=== PATIENT | female | born 1955 | race Asian ===

== ENCOUNTER 2020-04-02 07:15 | Inpatient (IN) | payer OTHER, MEDICAID ==
[~2020-04-02] VITALS: Ht 162.6 cm; Wt 73.9 kg
[2020-04-02] MEDS ORDERED: REMDESIVIR PER PHARMACY 0 ML IV SCH (07:30)
[2020-04-02] MEDS ORDERED: AZITHROMYCIN 500MG/ 250ML 250 ML IV ONE (07:30)
[2020-04-02] MEDS ORDERED: ZINC SULFATE 220mg CAP or TAB PO ONE (07:30)
[2020-04-02] MEDS ORDERED: methylPREDNISolone SOD SUCC 125 MG/2 ML VL IV ONE (07:30)
[2020-04-02] MEDS ORDERED: ASCORBIC ACID 500 MG TAB PO ONE (07:30)
[2020-04-02] MEDS ORDERED: CHOLECALCIFEROL (VITD3) 2,000 UNIT CAP/TAB PO ONE (07:30)
[2020-04-02 08:04] LABS: Basophils # (auto) 0 10 ^3/uL (0-0.2); Basophils % (auto) 0.3 % (0.0-2.0); Eosinophils # (auto) 0 10 ^3/uL (0-0.8); Hemoglobin 13.7 g/dL (12.2-16.2); Lymphocytes # (auto) 1.2 10 ^3/uL (0.4-5.4); Monocytes # (auto) 0.5 10 ^3/uL (0-1.3); Nucleated Red Blood Cells % 0.3 %
[2020-04-02 08:11] LABS: Lymphocytes % (auto) 17.7 % (10.0-50.0); Mean Corpuscular Hemoglobin 29.4 pg (28.0-32.0); Monocytes % (auto) 7.3 % (0.0-12.0); Neutrophils # (auto) 5.2 10 ^3/uL (1.6-8.6); Neutrophils % (auto) 74.7 % (37.0-80.0); Platelet Count (auto) 190 10^3/uL (140-450); Red Blood Cells 4.64 10^6/uL (4.0-5.20); Red Cell Distribution Width 17.3 % (11.8-14.3)
[2020-04-02 08:21] LABS: Albumin 2.7 g/dL (3.4-5.0); Calcium 8.2 mg/dL (8.5-10.1); Potassium 4.7 mmol/L (3.5-5.1)
[2020-04-02 08:24] LABS: Lactic Acid w/Reflex 11.2 mmol/L (0.4-2.0)
[2020-04-02 08:29] LABS: BUN/Creatinine Ratio 19.3; Bilirubin, Total 0.5 mg/dL (0.2-1.0); CRP High Sensitivity 2.03 mg/dL (< 0.3); Total Protein 8.9 g/dL (6.4-8.2)
[2020-04-02] MEDS ORDERED: FUROSEMIDE 40 MG/4 ML VIAL IV ONE (08:30)
[2020-04-02] MEDS ORDERED: methylPREDNISolone SOD SUCC 40 MG/ML VL IV ONE ×2 (10:00→10:45)
[2020-04-02] MEDS ORDERED: MORPHINE SULF INJ 2 MG/ML SYRINGE 1ML IV PRN ×2 (10:15)
[2020-04-02] MEDS ORDERED: SODIUM BICARBONATE 8.4 % INJ 50ML VIAL IV ONE (10:15)
[2020-04-02] MEDS ORDERED: ACETAMINOPHEN 500 MG TAB PO PRN (10:15)
[2020-04-02] MEDS ORDERED: ONDANSETRON HCL 4 MG/2 ML VIAL IV PRN (10:15)
[2020-04-02] MEDS ORDERED: HYDROcodone-ACET 5/325MG TAB PO PRN (10:15)
[2020-04-02] MEDS ORDERED: DEXTROSE (50%) 50ML SYRG IV PRN (10:15)
[2020-04-02] MEDS ORDERED: NITROGLYCERIN 0.4 MG SL TAB SL PRN (10:15)
[2020-04-02] MEDS ORDERED: diphenhdrAMINE HCL 50 MG/1 ML VL IV ONE (10:45)
[2020-04-02] MEDS ORDERED: ACETAMINOPHEN 650 mg PER 20.3 mL UD PO ONE (10:45)
[2020-04-02] MEDS ORDERED: TOCILIZUMAB 400 MG in SODIUM CHL 0.9% 80 ML IV ONE (11:00)
[2020-04-02] MEDS: InsuLIN REG 1unit/0.01ml Soln (100units/ml) SC SCH ×3 (12:10→21:47)
[2020-04-02] MEDS: ACCU-CHEK COMFORT CURVE STRIP VI SCH ×3 (12:12→21:19)
[2020-04-02] MEDS ORDERED: ACET-1304 PO (14:39)
[2020-04-02] MEDS ORDERED: OMEP-263 PO (15:10)
[2020-04-02] MEDS ORDERED: LEVO125T7 PO (15:10)
[2020-04-02] MEDS ORDERED: AZEL0.054 EACHEYE (15:10)
[2020-04-02] MEDS ORDERED: CARV12.544 PO (15:10)
[2020-04-02] MEDS ORDERED: PIOG1TAB51 PO (15:10)
[2020-04-02] MEDS ORDERED: ENTE1TAB12 PO (15:10)
[2020-04-02] MEDS ORDERED: ALOG25TA PO (15:10)
[2020-04-02] MEDS ORDERED: LOSA-39 PO (15:10)
[2020-04-02] MEDS ORDERED: ASPI-498 PO (15:10)
[2020-04-02] MEDS ORDERED: ISO60SRT PO (15:10)
[2020-04-02] MEDS ORDERED: SIMV-8 PO (15:10)
[2020-04-02] MEDS ORDERED: CLON0.2T PO (15:10)
[2020-04-02] MEDS ORDERED: CHOL500023 PO (15:10)
[2020-04-02] MEDS ORDERED: FURO40TA4 PO (15:10)
[2020-04-02] MEDS ORDERED: AMLO-496 PO (15:10)
[2020-04-02] MEDS ORDERED: FENO145T27 PO (15:10)
[2020-04-02] MEDS ORDERED: KET2TP TOP (15:12)
[2020-04-02 17:39] VITALS: BP 122/58
[2020-04-02 18:44] VITALS: BP 130/64
[2020-04-02 19:56] VITALS: BP 130/51
[2020-04-02] MEDS: BUDESONIDE (INHALATION) 180 MCG IH IN SCH (19:56)
[2020-04-02] MEDS ORDERED: ENOXAPARIN SOD 40 MG/0.4 ML SYRINGE SC SCH (22:00)
[2020-04-02 22:41] VITALS: BP 106/64
[2020-04-03 02:27] VITALS: BP 128/75
[2020-04-03 06:05] LABS: Basophils # (auto) 0 10 ^3/uL (0-0.2); Eosinophils # (auto) 0 10 ^3/uL (0-0.8); Hematocrit 36.6 % (36.0-46.0); Hemoglobin 12.5 g/dL (12.2-16.2); Lymphocytes # (auto) 0.7 10 ^3/uL (0.4-5.4); Lymphocytes % (auto) 12.3 % (10.0-50.0); Mean Corpuscular Hemoglobin 29.6 pg (28.0-32.0); Mean Corpuscular Hgb Conc. 34.1 g/dL (32.0-36.0); Mean Corpuscular Volume 86.6 fL (80.0-100.0); Monocytes # (auto) 0.4 10 ^3/uL (0-1.3); Monocytes % (auto) 7.5 % (0.0-12.0); Neutrophils # (auto) 4.8 10 ^3/uL (1.6-8.6); Neutrophils % (auto) 80.2 % (37.0-80.0); Nucleated Red Blood Cells % 0.3 %; Platelet Count (auto) 155 10^3/uL (140-450); Red Blood Cells 4.23 10^6/uL (4.0-5.20); Red Cell Distribution Width 15.8 % (11.8-14.3)
[2020-04-03 06:11] LABS: Urine Amorphous Crystal FEW /hpf (None Seen); Urine Bacteria MOD /hpf (None Seen); Urine Blood 1+ /uL (Negative); Urine Hyaline Cast MANY /lpf (0 - 2); Urine Mucus FEW (None Seen); Urine Specific Gravity 1.019 (1.001-1.035); Urine WBC 6 /hpf (0 - 5)
[2020-04-03] MEDS: InsuLIN REG 1unit/0.01ml Soln (100units/ml) SC SCH ×4 (06:21→21:32)
[2020-04-03] MEDS: ACCU-CHEK COMFORT CURVE STRIP VI SCH ×4 (06:22→21:33)
[2020-04-03 06:30] LABS: Potassium 3.9 mmol/L (3.5-5.1)
[2020-04-03 06:52] LABS: BUN/Creatinine Ratio 26.1; Calcium 7.8 mg/dL (8.5-10.1)
[2020-04-03] MEDS: cefTRIAXone 1GM/50ML D5W 50 ML IV SCH (08:30)
[2020-04-03] MEDS: ZINC SULFATE 220mg CAP or TAB PO SCH (08:31)
[2020-04-03] MEDS: DexAMETHasone SOD PHOS 10MG/1ML VIAL INJ IV SCH (08:31)
[2020-04-03] MEDS: ASCORBIC ACID 1,000 MG TAB PO SCH (08:31)
[2020-04-03] MEDS: FAMOTIDINE (10MG/ML) 2ML VL IV SCH (08:31)
[2020-04-03] MEDS: CHOLECALCIFEROL (VITD3) 2,000 UNIT CAP/TAB PO SCH (08:31)
[2020-04-03] MEDS: ENOXAPARIN SOD 40 MG/0.4 ML SYRINGE SC SCH (08:31)
[2020-04-03] MEDS: AZITHROMYCIN 500MG/ 250ML 250 ML IV SCH (08:32)
[2020-04-03 09:20] VITALS: BP 149/59
[2020-04-03] MEDS: ALBUTEROL SULF HFA 90MCG INH 200DOSE IN PRN ×2 (09:20→20:34)
[2020-04-03] MEDS: BUDESONIDE (INHALATION) 180 MCG IH IN SCH ×2 (09:20→19:28)
[2020-04-03] MEDS ORDERED: ACETAMINOPHEN 650 mg PER 20.3 mL UD PO ONE (10:00)
[2020-04-03] MEDS ORDERED: IVERMECTIN 3 MG TAB PO ONE (10:00)
[2020-04-03] MEDS ORDERED: diphenhdrAMINE HCL 50 MG/1 ML VL IV ONE (10:00)
[2020-04-03] MEDS ORDERED: TOCILIZUMAB 400 MG in SODIUM CHL 0.9% 80 ML IV ONE (11:00)
[2020-04-03 12:10] VITALS: BP 112/76
[2020-04-03] MEDS: ERGOCALCIFEROL 50,000 UNIT(1.25MG) CAP PO SCH (15:00)
[2020-04-03] MEDS ORDERED: POTASSIUM CHL 10 Meq TABLET PO ONE (15:00)
[2020-04-03] MEDS ORDERED: FUROSEMIDE 40 MG/4 ML VIAL IV ONE (15:00)
[2020-04-03 19:28] VITALS: BP 109/66
[2020-04-03 22:05] VITALS: BP 134/81
[2020-04-04 02:16] VITALS: BP 116/92
[2020-04-04 06:19] VITALS: BP 161/85
[2020-04-04] MEDS: InsuLIN REG 1unit/0.01ml Soln (100units/ml) SC SCH ×4 (07:00→22:25)
[2020-04-04] MEDS: ALBUTEROL SULF HFA 90MCG INH 200DOSE IN PRN ×2 (07:07→23:07)
[2020-04-04] MEDS: BUDESONIDE (INHALATION) 180 MCG IH IN SCH ×2 (07:07→22:00)
[2020-04-04] MEDS: ACCU-CHEK COMFORT CURVE STRIP VI SCH ×4 (07:15→22:25)
[2020-04-04 07:30] LABS: Basophils # (auto) 0 10 ^3/uL (0-0.2); Basophils % (auto) 0.1 % (0.0-2.0); Eosinophils # (auto) 0 10 ^3/uL (0-0.8); Eosinophils % (auto) 0.1 % (0.0-7.0); Hemoglobin 12.9 g/dL (12.2-16.2); Lymphocytes # (auto) 0.6 10 ^3/uL (0.4-5.4); Lymphocytes % (auto) 14.2 % (10.0-50.0); Mean Corpuscular Hemoglobin 29.2 pg (28.0-32.0); Mean Corpuscular Hgb Conc. 33.9 g/dL (32.0-36.0); Mean Corpuscular Volume 86.1 fL (80.0-100.0); Monocytes # (auto) 0.3 10 ^3/uL (0-1.3); Monocytes % (auto) 7.1 % (0.0-12.0); Neutrophils # (auto) 3.6 10 ^3/uL (1.6-8.6); Neutrophils % (auto) 78.5 % (37.0-80.0); Nucleated Red Blood Cells % 0.4 %; Platelet Count (auto) 162 10^3/uL (140-450); Red Blood Cells 4.41 10^6/uL (4.0-5.20); Red Cell Distribution Width 16.6 % (11.8-14.3); White Blood Cell 4.6 10^3/uL (4.4-10.8)
[2020-04-04 07:49] LABS: INR 1.01 (0.9-1.15)
[2020-04-04 07:50] LABS: Chloride 107 mmol/L (98-107); Potassium 4.1 mmol/L (3.5-5.1); Sodium 140 mmol/L (136-145)
[2020-04-04 08:19] LABS: Alanine Aminotransferase 69 U/L (13-56); Albumin 2.5 g/dL (3.4-5.0); Alkaline Phosphatase 50 U/L (45-117); Anion Gap 9 (5-15); Aspartate Aminotransferase 105 U/L (15-37); BUN/Creatinine Ratio 30.9; Bilirubin, Total 0.5 mg/dL (0.2-1.0); CRP High Sensitivity 1.48 mg/dL (< 0.3); Calcium 7.7 mg/dL (8.5-10.1); Carbon Dioxide 24 mmol/L (21-32); Cholesterol 196 mg/dL (< 200); GFR African American 18 mL/min; GFR Non-African American 15 mL/min; Glucose 129 mg/dL (74-106); HDL Cholesterol 38 mg/dL (40-59); Lactate Dehydrogenase 1067 U/L (84-246); Magnesium 3.5 mg/dL (1.6-2.6); Total Protein 7.5 g/dL (6.4-8.2); Triglycerides 710 mg/dL (< 150)
[2020-04-04 08:25] LABS: Blood Urea Nitrogen 104 mg/dL (7-18)
[2020-04-04] MEDS: cefTRIAXone 1GM/50ML D5W 50 ML IV SCH (09:45)
[2020-04-04] MEDS: DexAMETHasone SOD PHOS 10MG/1ML VIAL INJ IV SCH (10:24)
[2020-04-04] MEDS: FAMOTIDINE (10MG/ML) 2ML VL IV SCH (10:25)
[2020-04-04] MEDS: IVERMECTIN 3 MG TAB PO SCH (10:25)
[2020-04-04] MEDS: ZINC SULFATE 220mg CAP or TAB PO SCH (10:25)
[2020-04-04] MEDS: AZITHROMYCIN 500MG/ 250ML 250 ML IV SCH (10:25)
[2020-04-04] MEDS: ENOXAPARIN SOD 40 MG/0.4 ML SYRINGE SC SCH (10:26)
[2020-04-04] MEDS: CHOLECALCIFEROL (VITD3) 2,000 UNIT CAP/TAB PO SCH (10:26)
[2020-04-04] MEDS: ASCORBIC ACID 1,000 MG TAB PO SCH (10:26)
[2020-04-04] MEDS: FUROSEMIDE 40 MG/4 ML VIAL IV SCH (10:27)
[2020-04-04 10:28] VITALS: BP 126/56
[2020-04-04 15:00] VITALS: BP 145/82
[2020-04-04 18:40] VITALS: BP 148/94
[2020-04-05 00:10] VITALS: BP 160/97
[2020-04-05 02:20] VITALS: BP 150/91
[2020-04-05 06:05] LABS: Albumin 2.6 g/dL (3.4-5.0); Calcium 7.9 mg/dL (8.5-10.1); Potassium 4.3 mmol/L (3.5-5.1)
[2020-04-05 06:12] LABS: BUN/Creatinine Ratio 35.5; Bilirubin, Total 0.6 mg/dL (0.2-1.0); Total Protein 7.5 g/dL (6.4-8.2)
[2020-04-05 06:40] VITALS: BP 169/89
[2020-04-05] MEDS: ACCU-CHEK COMFORT CURVE STRIP VI SCH ×4 (07:00→21:42)
[2020-04-05] MEDS: InsuLIN REG 1unit/0.01ml Soln (100units/ml) SC SCH ×4 (07:00→21:36)
[2020-04-05] MEDS: FUROSEMIDE 40 MG/4 ML VIAL IV SCH (08:13)
[2020-04-05] MEDS: cefTRIAXone 1GM/50ML D5W 50 ML IV SCH (08:13)
[2020-04-05] MEDS: DexAMETHasone SOD PHOS 10MG/1ML VIAL INJ IV SCH (08:13)
[2020-04-05] MEDS: ZINC SULFATE 220mg CAP or TAB PO SCH (08:14)
[2020-04-05] MEDS: FAMOTIDINE (10MG/ML) 2ML VL IV SCH (08:14)
[2020-04-05] MEDS: CHOLECALCIFEROL (VITD3) 2,000 UNIT CAP/TAB PO SCH (08:14)
[2020-04-05] MEDS: ENOXAPARIN SOD 80 MG/0.8ML SYRINGE SC SCH (08:14)
[2020-04-05] MEDS: IVERMECTIN 3 MG TAB PO SCH (08:14)
[2020-04-05] MEDS: ASCORBIC ACID 1,000 MG TAB PO SCH (08:14)
[2020-04-05] MEDS: AZITHROMYCIN 500MG/ 250ML 250 ML IV SCH (10:00)
[2020-04-05] MEDS: ALBUTEROL SULF HFA 90MCG INH 200DOSE IN PRN ×2 (10:14→20:43)
[2020-04-05] MEDS: BUDESONIDE (INHALATION) 180 MCG IH IN SCH ×2 (10:14→18:52)
[2020-04-05 13:36] VITALS: BP 155/137
[2020-04-05] MEDS ORDERED: SODIUM CHLORIDE 0.9% 500 ML IV ONE (16:00)
[2020-04-05 22:25] VITALS: BP 172/97
[2020-04-06 02:25] VITALS: BP 170/102
[2020-04-06 06:56] VITALS: BP 149/95
[2020-04-06] MEDS: BUDESONIDE (INHALATION) 180 MCG IH IN SCH ×2 (06:56→18:38)
[2020-04-06] MEDS: ALBUTEROL SULF HFA 90MCG INH 200DOSE IN PRN ×2 (06:56→19:05)
[2020-04-06 07:01] LABS: Basophils # (auto) 0 10 ^3/uL (0-0.2); Basophils % (auto) 0.1 % (0.0-2.0); Eosinophils # (auto) 0 10 ^3/uL (0-0.8); Eosinophils % (auto) 0.3 % (0.0-7.0); Hemoglobin 13.9 g/dL (12.2-16.2); Lymphocytes # (auto) 0.6 10 ^3/uL (0.4-5.4); Lymphocytes % (auto) 10.3 % (10.0-50.0); Mean Corpuscular Hemoglobin 29.1 pg (28.0-32.0); Mean Corpuscular Hgb Conc. 33.9 g/dL (32.0-36.0); Monocytes # (auto) 0.4 10 ^3/uL (0-1.3); Monocytes % (auto) 7.5 % (0.0-12.0); Neutrophils # (auto) 4.7 10 ^3/uL (1.6-8.6); Neutrophils % (auto) 81.8 % (37.0-80.0); Nucleated Red Blood Cells % 0.3 %; Platelet Count (auto) 172 10^3/uL (140-450); Red Blood Cells 4.77 10^6/uL (4.0-5.20); White Blood Cell 5.7 10^3/uL (4.4-10.8)
[2020-04-06 07:23] LABS: Potassium 4.5 mmol/L (3.5-5.1)
[2020-04-06 07:34] LABS: Albumin 2.5 g/dL (3.4-5.0); BUN/Creatinine Ratio 36.6; Bilirubin, Total 0.6 mg/dL (0.2-1.0); Calcium 8.1 mg/dL (8.5-10.1); Total Protein 7.6 g/dL (6.4-8.2)
[2020-04-06] MEDS: InsuLIN REG 1unit/0.01ml Soln (100units/ml) SC SCH ×4 (08:00→22:00)
[2020-04-06] MEDS: ACCU-CHEK COMFORT CURVE STRIP VI SCH ×4 (08:00→22:00)
[2020-04-06] MEDS: cefTRIAXone 1GM/50ML D5W 50 ML IV SCH (10:04)
[2020-04-06] MEDS: AZITHROMYCIN 500MG/ 250ML 250 ML IV SCH (10:26)
[2020-04-06] MEDS: DexAMETHasone SOD PHOS 10MG/1ML VIAL INJ IV SCH (10:28)
[2020-04-06] MEDS: ASCORBIC ACID 1,000 MG TAB PO SCH (10:29)
[2020-04-06] MEDS: FAMOTIDINE (10MG/ML) 2ML VL IV SCH (10:29)
[2020-04-06] MEDS: ENOXAPARIN SOD 80 MG/0.8ML SYRINGE SC SCH (10:29)
[2020-04-06] MEDS: FUROSEMIDE 40 MG/4 ML VIAL IV SCH (10:29)
[2020-04-06] MEDS: ZINC SULFATE 220mg CAP or TAB PO SCH (10:29)
[2020-04-06] MEDS: IVERMECTIN 3 MG TAB PO SCH (10:29)
[2020-04-06] MEDS: CHOLECALCIFEROL (VITD3) 2,000 UNIT CAP/TAB PO SCH (10:29)
[2020-04-06 11:51] VITALS: BP 149/95
[2020-04-06 14:59] VITALS: BP 136/80
[2020-04-06 18:38] VITALS: BP 154/95
[2020-04-07 00:01] VITALS: BP 166/102
[2020-04-07] MEDS ORDERED: LABETALOL HCL 5 MG/ML 4ML SYRINGE IV ONE ×2 (02:30→23:30)
[2020-04-07 03:08] VITALS: BP 147/99
[2020-04-07 05:55] VITALS: BP 164/104
[2020-04-07] MEDS: InsuLIN REG 1unit/0.01ml Soln (100units/ml) SC SCH ×5 (07:00→22:43)
[2020-04-07] MEDS: ACCU-CHEK COMFORT CURVE STRIP VI SCH ×4 (07:00→22:38)
[2020-04-07 07:22] LABS: Calcium 8.2 mg/dL (8.5-10.1); Potassium 4.1 mmol/L (3.5-5.1)
[2020-04-07 07:24] LABS: BUN/Creatinine Ratio 36.5
[2020-04-07 07:26] LABS: Basophils # (auto) 0 10 ^3/uL (0-0.2); Basophils % (auto) 0.2 % (0.0-2.0); Eosinophils # (auto) 0 10 ^3/uL (0-0.8); Eosinophils % (auto) 0.3 % (0.0-7.0); Hematocrit 41.3 % (36.0-46.0); Hemoglobin 13.8 g/dL (12.2-16.2); Lymphocytes # (auto) 0.6 10 ^3/uL (0.4-5.4); Lymphocytes % (auto) 8.6 % (10.0-50.0); Mean Corpuscular Hemoglobin 28.9 pg (28.0-32.0); Mean Corpuscular Hgb Conc. 33.5 g/dL (32.0-36.0); Mean Corpuscular Volume 86.3 fL (80.0-100.0); Monocytes # (auto) 0.4 10 ^3/uL (0-1.3); Monocytes % (auto) 5.6 % (0.0-12.0); Neutrophils # (auto) 5.7 10 ^3/uL (1.6-8.6); Neutrophils % (auto) 85.3 % (37.0-80.0); Nucleated Red Blood Cells % 0.5 %; Platelet Count (auto) 201 10^3/uL (140-450); Red Blood Cells 4.79 10^6/uL (4.0-5.20); Red Cell Distribution Width 15.8 % (11.8-14.3); White Blood Cell 6.7 10^3/uL (4.4-10.8)
[2020-04-07] MEDS: cefTRIAXone 1GM/50ML D5W 50 ML IV SCH (08:12)
[2020-04-07] MEDS: DexAMETHasone SOD PHOS 10MG/1ML VIAL INJ IV SCH (09:30)
[2020-04-07] MEDS: FAMOTIDINE (10MG/ML) 2ML VL IV SCH (09:31)
[2020-04-07] MEDS: ASCORBIC ACID 1,000 MG TAB PO SCH (09:31)
[2020-04-07] MEDS: IVERMECTIN 3 MG TAB PO SCH (09:31)
[2020-04-07] MEDS: FUROSEMIDE 40 MG/4 ML VIAL IV SCH (09:31)
[2020-04-07] MEDS: ZINC SULFATE 220mg CAP or TAB PO SCH (09:31)
[2020-04-07] MEDS: CHOLECALCIFEROL (VITD3) 2,000 UNIT CAP/TAB PO SCH (09:31)
[2020-04-07] MEDS: AZITHROMYCIN 500MG/ 250ML 250 ML IV SCH (09:31)
[2020-04-07] MEDS: ENOXAPARIN SOD 80 MG/0.8ML SYRINGE SC SCH (09:37)
[2020-04-07] MEDS: BUDESONIDE (INHALATION) 180 MCG IH IN SCH ×2 (10:00→22:00)
[2020-04-07 10:56] LABS: Hepatitis B Surface Antibody Negative
[2020-04-07 11:31] LABS: Hepatitis A Total Antibody Positive
[2020-04-07 13:29] LABS: Hepatitis C Antibody Negative (Negative)
[2020-04-07 13:32] LABS: Hepatitis B Core Total AB Positive; Hepatitis B Surface Antigen Positive (Negative)
[2020-04-07 14:00] VITALS: BP 156/93
[2020-04-07 19:10] VITALS: BP 168/105
[2020-04-07 22:40] VITALS: BP 175/110
[2020-04-08 02:28] VITALS: BP 160/94
[2020-04-08 06:25] VITALS: BP 123/74
[2020-04-08] MEDS: BUDESONIDE (INHALATION) 180 MCG IH IN SCH ×2 (06:25→18:37)
[2020-04-08 08:00] LABS: Albumin 2.4 g/dL (3.4-5.0); Calcium 8.1 mg/dL (8.5-10.1); Magnesium 3.6 mg/dL (1.6-2.6); Potassium 4.1 mmol/L (3.5-5.1)
[2020-04-08] MEDS: InsuLIN REG 1unit/0.01ml Soln (100units/ml) SC SCH ×4 (08:00→22:56)
[2020-04-08] MEDS: ACCU-CHEK COMFORT CURVE STRIP VI SCH ×4 (08:00→22:58)
[2020-04-08 08:02] LABS: INR 1.13 (0.9-1.15)
[2020-04-08 08:06] LABS: Bilirubin, Total 0.5 mg/dL (0.2-1.0); CRP High Sensitivity 0.21 mg/dL (< 0.3); Total Protein 7.1 g/dL (6.4-8.2)
[2020-04-08] MEDS: cefTRIAXone 1GM/50ML D5W 50 ML IV SCH (09:00)
[2020-04-08 10:00] VITALS: BP 155/89
[2020-04-08] MEDS: AZITHROMYCIN 500MG/ 250ML 250 ML IV SCH (10:24)
[2020-04-08] MEDS: ASCORBIC ACID 1,000 MG TAB PO SCH (10:24)
[2020-04-08] MEDS: ENOXAPARIN SOD 80 MG/0.8ML SYRINGE SC SCH (10:24)
[2020-04-08] MEDS: ZINC SULFATE 220mg CAP or TAB PO SCH (10:24)
[2020-04-08] MEDS: CHOLECALCIFEROL (VITD3) 2,000 UNIT CAP/TAB PO SCH (10:24)
[2020-04-08] MEDS: DexAMETHasone SOD PHOS 10MG/1ML VIAL INJ IV SCH (10:25)
[2020-04-08] MEDS: FUROSEMIDE 40 MG/4 ML VIAL IV SCH (10:25)
[2020-04-08] MEDS: FAMOTIDINE (10MG/ML) 2ML VL IV SCH (10:25)
[2020-04-08] MEDS: ALBUTEROL SULF HFA 90MCG INH 200DOSE IN PRN (19:47)
[2020-04-08] MEDS: cloNIDine HCL 0.1 MG TAB PO PRN (20:53)
[2020-04-09] MEDS: cloNIDine HCL 0.1 MG TAB PO PRN (02:32)
[2020-04-09] MEDS: InsuLIN REG 1unit/0.01ml Soln (100units/ml) SC SCH ×4 (07:00→22:21)
[2020-04-09] MEDS: ACCU-CHEK COMFORT CURVE STRIP VI SCH ×4 (07:00→22:01)
[2020-04-09 07:23] LABS: BUN/Creatinine Ratio 36.9
[2020-04-09] MEDS: cefTRIAXone 1GM/50ML D5W 50 ML IV SCH (09:15)
[2020-04-09] MEDS: ZINC SULFATE 220mg CAP or TAB PO SCH (09:15)
[2020-04-09] MEDS: FAMOTIDINE (10MG/ML) 2ML VL IV SCH (09:15)
[2020-04-09] MEDS: DexAMETHasone SOD PHOS 10MG/1ML VIAL INJ IV SCH (09:15)
[2020-04-09] MEDS: FUROSEMIDE 40 MG/4 ML VIAL IV SCH (09:15)
[2020-04-09] MEDS: ASCORBIC ACID 1,000 MG TAB PO SCH (09:15)
[2020-04-09] MEDS: CHOLECALCIFEROL (VITD3) 2,000 UNIT CAP/TAB PO SCH (09:16)
[2020-04-09] MEDS: BUDESONIDE (INHALATION) 180 MCG IH IN SCH (09:45)
[2020-04-09] MEDS: ENOXAPARIN SOD 80 MG/0.8ML SYRINGE SC SCH (10:45)
[2020-04-09] MEDS: AZITHROMYCIN 500MG/ 250ML 250 ML IV SCH (10:45)
[2020-04-09 16:16] VITALS: BP 136/80
[2020-04-10] VITALS: BP 151/84
[2020-04-10] MEDS: InsuLIN REG 1unit/0.01ml Soln (100units/ml) SC SCH ×4 (06:02→22:12)
[2020-04-10] MEDS: ACCU-CHEK COMFORT CURVE STRIP VI SCH ×4 (06:02→22:11)
[2020-04-10 08:00] VITALS: BP 148/72
[2020-04-10 08:15] LABS: Basophils # (auto) 0 10 ^3/uL (0-0.2); Basophils % (auto) 0.6 % (0.0-2.0); Eosinophils # (auto) 0.2 10 ^3/uL (0-0.8); Eosinophils % (auto) 2.6 % (0.0-7.0); Hematocrit 41.1 % (36.0-46.0); Hemoglobin 13.8 g/dL (12.2-16.2); Lymphocytes # (auto) 0.5 10 ^3/uL (0.4-5.4); Lymphocytes % (auto) 6.1 % (10.0-50.0); Mean Corpuscular Hemoglobin 29.1 pg (28.0-32.0); Mean Corpuscular Hgb Conc. 33.6 g/dL (32.0-36.0); Mean Corpuscular Volume 86.6 fL (80.0-100.0); Monocytes # (auto) 0.2 10 ^3/uL (0-1.3); Monocytes % (auto) 3.1 % (0.0-12.0); Neutrophils # (auto) 6.5 10 ^3/uL (1.6-8.6); Neutrophils % (auto) 87.6 % (37.0-80.0); Nucleated Red Blood Cells % 0.1 %; Platelet Count (auto) 187 10^3/uL (140-450); Red Blood Cells 4.75 10^6/uL (4.0-5.20); Red Cell Distribution Width 15.5 % (11.8-14.3); White Blood Cell 7.5 10^3/uL (4.4-10.8)
[2020-04-10 08:23] LABS: Magnesium 3.3 mg/dL (1.6-2.6); Potassium 4.2 mmol/L (3.5-5.1)
[2020-04-10 08:25] LABS: BUN/Creatinine Ratio 36.8
[2020-04-10] MEDS: DexAMETHasone SOD PHOS 10MG/1ML VIAL INJ IV SCH (09:48)
[2020-04-10] MEDS: FUROSEMIDE 40 MG/4 ML VIAL IV SCH (09:48)
[2020-04-10] MEDS: ENOXAPARIN SOD 80 MG/0.8ML SYRINGE SC SCH (09:48)
[2020-04-10] MEDS: cefTRIAXone 1GM/50ML D5W 50 ML IV SCH (09:48)
[2020-04-10] MEDS: CHOLECALCIFEROL (VITD3) 2,000 UNIT CAP/TAB PO SCH (09:49)
[2020-04-10] MEDS: AZITHROMYCIN 500MG/ 250ML 250 ML IV SCH (09:49)
[2020-04-10] MEDS: ASCORBIC ACID 1,000 MG TAB PO SCH (09:49)
[2020-04-10] MEDS: FAMOTIDINE (10MG/ML) 2ML VL IV SCH (09:49)
[2020-04-10] MEDS: ZINC SULFATE 220mg CAP or TAB PO SCH (09:49)
[2020-04-10] MEDS: ERGOCALCIFEROL 50,000 UNIT(1.25MG) CAP PO SCH (15:09)
[2020-04-10 16:00] VITALS: BP 134/69
[2020-04-11] VITALS: BP 144/88
[2020-04-11] MEDS: ACCU-CHEK COMFORT CURVE STRIP VI SCH ×4 (07:00→22:05)
[2020-04-11] MEDS: InsuLIN REG 1unit/0.01ml Soln (100units/ml) SC SCH ×4 (07:00→22:07)
[2020-04-11 07:23] LABS: INR 1.13 (0.9-1.15)
[2020-04-11 07:27] LABS: BUN/Creatinine Ratio 36.3; Calcium 7.7 mg/dL (8.5-10.1); Potassium 4.6 mmol/L (3.5-5.1)
[2020-04-11 08:00] VITALS: BP 150/85
[2020-04-11] MEDS: CHOLECALCIFEROL (VITD3) 2,000 UNIT CAP/TAB PO SCH (09:22)
[2020-04-11] MEDS: FUROSEMIDE 40 MG/4 ML VIAL IV SCH (09:24)
[2020-04-11] MEDS: DexAMETHasone SOD PHOS 10MG/1ML VIAL INJ IV SCH (09:24)
[2020-04-11] MEDS: cefTRIAXone 1GM/50ML D5W 50 ML IV SCH (09:24)
[2020-04-11] MEDS: FAMOTIDINE (10MG/ML) 2ML VL IV SCH (09:25)
[2020-04-11] MEDS: ASCORBIC ACID 1,000 MG TAB PO SCH (09:25)
[2020-04-11] MEDS: ENOXAPARIN SOD 80 MG/0.8ML SYRINGE SC SCH (09:25)
[2020-04-11] MEDS: ZINC SULFATE 220mg CAP or TAB PO SCH (09:25)
[2020-04-11] MEDS: AZITHROMYCIN 500MG/ 250ML 250 ML IV SCH (10:59)
[2020-04-11 16:00] VITALS: BP 133/84
[2020-04-12] VITALS: BP 149/81
[2020-04-12] MEDS: ACCU-CHEK COMFORT CURVE STRIP VI SCH ×4 (05:48→22:00)
[2020-04-12] MEDS: InsuLIN REG 1unit/0.01ml Soln (100units/ml) SC SCH ×4 (05:48→23:15)
[2020-04-12 07:54] VITALS: BP 143/78
[2020-04-12] MEDS: DexAMETHasone SOD PHOS 10MG/1ML VIAL INJ IV SCH (09:16)
[2020-04-12] MEDS: cefTRIAXone 1GM/50ML D5W 50 ML IV SCH (09:16)
[2020-04-12] MEDS: FUROSEMIDE 40 MG/4 ML VIAL IV SCH (09:18)
[2020-04-12] MEDS: ZINC SULFATE 220mg CAP or TAB PO SCH (09:18)
[2020-04-12] MEDS: ASCORBIC ACID 1,000 MG TAB PO SCH (09:18)
[2020-04-12] MEDS: FAMOTIDINE (10MG/ML) 2ML VL IV SCH (09:18)
[2020-04-12] MEDS: CHOLECALCIFEROL (VITD3) 2,000 UNIT CAP/TAB PO SCH (09:19)
[2020-04-12] MEDS: ENOXAPARIN SOD 80 MG/0.8ML SYRINGE SC SCH (09:19)
[2020-04-12] MEDS: AZITHROMYCIN 500MG/ 250ML 250 ML IV SCH (10:26)
[2020-04-12 16:06] VITALS: BP 130/82
[2020-04-13] VITALS: BP 154/94
[2020-04-13] MEDS: InsuLIN REG 1unit/0.01ml Soln (100units/ml) SC SCH ×4 (05:19→22:23)
[2020-04-13] MEDS: ACCU-CHEK COMFORT CURVE STRIP VI SCH ×4 (05:19→22:22)
[2020-04-13 08:00] VITALS: BP 152/80
[2020-04-13] MEDS: cefTRIAXone 1GM/50ML D5W 50 ML IV SCH (09:49)
[2020-04-13] MEDS: DexAMETHasone SOD PHOS 10MG/1ML VIAL INJ IV SCH (09:49)
[2020-04-13] MEDS: ASCORBIC ACID 1,000 MG TAB PO SCH (09:50)
[2020-04-13] MEDS: CHOLECALCIFEROL (VITD3) 2,000 UNIT CAP/TAB PO SCH (09:50)
[2020-04-13] MEDS: ENOXAPARIN SOD 80 MG/0.8ML SYRINGE SC SCH (09:50)
[2020-04-13] MEDS: ZINC SULFATE 220mg CAP or TAB PO SCH (09:50)
[2020-04-13] MEDS: FUROSEMIDE 40 MG/4 ML VIAL IV SCH (09:50)
[2020-04-13] MEDS: FAMOTIDINE (10MG/ML) 2ML VL IV SCH (09:50)
[2020-04-13] MEDS: AZITHROMYCIN 500MG/ 250ML 250 ML IV SCH (11:26)
[2020-04-13 15:56] VITALS: BP 144/85
[2020-04-14] VITALS: BP 154/95
[2020-04-14] MEDS: InsuLIN REG 1unit/0.01ml Soln (100units/ml) SC SCH ×4 (06:26→21:38)
[2020-04-14] MEDS: ACCU-CHEK COMFORT CURVE STRIP VI SCH ×4 (06:26→21:38)
[2020-04-14 07:20] LABS: Basophils # (auto) 0 10 ^3/uL (0-0.2); Basophils % (auto) 0.2 % (0.0-2.0); Eosinophils # (auto) 0.1 10 ^3/uL (0-0.8); Eosinophils % (auto) 1.3 % (0.0-7.0); Hematocrit 39.7 % (36.0-46.0); Hemoglobin 12.9 g/dL (12.2-16.2); Lymphocytes # (auto) 0.6 10 ^3/uL (0.4-5.4); Lymphocytes % (auto) 9.3 % (10.0-50.0); Mean Corpuscular Hemoglobin 29.5 pg (28.0-32.0); Mean Corpuscular Hgb Conc. 32.5 g/dL (32.0-36.0); Mean Corpuscular Volume 90.6 fL (80.0-100.0); Monocytes # (auto) 0.3 10 ^3/uL (0-1.3); Monocytes % (auto) 3.8 % (0.0-12.0); Neutrophils # (auto) 5.9 10 ^3/uL (1.6-8.6); Neutrophils % (auto) 85.4 % (37.0-80.0); Nucleated Red Blood Cells % 0.1 %; Platelet Count (auto) 152 10^3/uL (140-450); Red Blood Cells 4.38 10^6/uL (4.0-5.20); Red Cell Distribution Width 16.1 % (11.8-14.3); White Blood Cell 6.9 10^3/uL (4.4-10.8)
[2020-04-14 07:34] LABS: BUN/Creatinine Ratio 31.9; Potassium 4.3 mmol/L (3.5-5.1)
[2020-04-14 07:50] VITALS: BP 159/94
[2020-04-14] MEDS: ZINC SULFATE 220mg CAP or TAB PO SCH (09:55)
[2020-04-14] MEDS: DexAMETHasone SOD PHOS 10MG/1ML VIAL INJ IV SCH (09:55)
[2020-04-14] MEDS: FAMOTIDINE (10MG/ML) 2ML VL IV SCH (09:56)
[2020-04-14] MEDS: ENOXAPARIN SOD 80 MG/0.8ML SYRINGE SC SCH (09:56)
[2020-04-14] MEDS: cefTRIAXone 1GM/50ML D5W 50 ML IV SCH (09:56)
[2020-04-14] MEDS: CHOLECALCIFEROL (VITD3) 2,000 UNIT CAP/TAB PO SCH (09:56)
[2020-04-14] MEDS: ASCORBIC ACID 1,000 MG TAB PO SCH (10:00)
[2020-04-14 16:00] VITALS: BP 158/98
[2020-04-15] VITALS: BP 161/93
[2020-04-15] MEDS: InsuLIN REG 1unit/0.01ml Soln (100units/ml) SC SCH ×4 (07:00→22:00)
[2020-04-15] MEDS: ACCU-CHEK COMFORT CURVE STRIP VI SCH ×4 (07:19→23:42)
[2020-04-15 07:25] LABS: BUN/Creatinine Ratio 32.7; CRP High Sensitivity 0.11 mg/dL (< 0.3); Calcium 8.3 mg/dL (8.5-10.1); Magnesium 2.9 mg/dL (1.6-2.6); Potassium 4.4 mmol/L (3.5-5.1)
[2020-04-15 08:00] VITALS: BP 190/100
[2020-04-15] MEDS: ASCORBIC ACID 1,000 MG TAB PO SCH (08:14)
[2020-04-15] MEDS: cefTRIAXone 1GM/50ML D5W 50 ML IV SCH (08:14)
[2020-04-15] MEDS: ZINC SULFATE 220mg CAP or TAB PO SCH (08:14)
[2020-04-15] MEDS: FAMOTIDINE (10MG/ML) 2ML VL IV SCH (08:14)
[2020-04-15] MEDS: CHOLECALCIFEROL (VITD3) 2,000 UNIT CAP/TAB PO SCH (08:14)
[2020-04-15] MEDS: DexAMETHasone SOD PHOS 10MG/1ML VIAL INJ IV SCH (08:14)
[2020-04-15] MEDS: ENOXAPARIN SOD 80 MG/0.8ML SYRINGE SC SCH (08:15)
[2020-04-15] MEDS: cloNIDine HCL 0.1 MG TAB PO PRN (08:15)
[2020-04-15] MEDS ORDERED: FUROSEMIDE 40 MG/4 ML VIAL IV ONE (12:45)
[2020-04-15 16:00] VITALS: BP 148/102
[2020-04-15] MEDS ORDERED: METOPROLOL TARTRATE 25 MG TAB PO SCH (22:00)
[2020-04-15] MEDS: CARVEDILOL 3.125 MG TAB PO SCH (23:42)
[2020-04-16] VITALS: BP 155/97
[2020-04-16] MEDS: ACCU-CHEK COMFORT CURVE STRIP VI SCH ×4 (06:25→22:29)
[2020-04-16] MEDS: InsuLIN REG 1unit/0.01ml Soln (100units/ml) SC SCH ×4 (06:26→22:54)
[2020-04-16 06:50] LABS: Calcium 8.6 mg/dL (8.5-10.1); Potassium 4.8 mmol/L (3.5-5.1)
[2020-04-16 06:56] LABS: BUN/Creatinine Ratio 32.7
[2020-04-16 08:00] VITALS: BP 182/110
[2020-04-16] MEDS: cefTRIAXone 1GM/50ML D5W 50 ML IV SCH (09:10)
[2020-04-16] MEDS: DexAMETHasone SOD PHOS 10MG/1ML VIAL INJ IV SCH (09:10)
[2020-04-16] MEDS: ZINC SULFATE 220mg CAP or TAB PO SCH (09:12)
[2020-04-16] MEDS: FUROSEMIDE 40 MG/4 ML VIAL IV SCH (09:12)
[2020-04-16] MEDS: FAMOTIDINE (10MG/ML) 2ML VL IV SCH (09:12)
[2020-04-16] MEDS: CARVEDILOL 3.125 MG TAB PO SCH ×3 (09:13→22:29)
[2020-04-16] MEDS: ASCORBIC ACID 1,000 MG TAB PO SCH (09:13)
[2020-04-16] MEDS: CHOLECALCIFEROL (VITD3) 2,000 UNIT CAP/TAB PO SCH (09:14)
[2020-04-16] MEDS: ENOXAPARIN SOD 80 MG/0.8ML SYRINGE SC SCH (09:14)
[2020-04-16] MEDS ORDERED: amLODIPine BESYLATE 5 MG TAB PO ONE (14:45)
[2020-04-16 16:00] VITALS: BP 148/83
[2020-04-16] MEDS: cloNIDine HCL 0.1 MG TAB PO SCH (22:28)
[2020-04-17] VITALS: BP 151/71
[2020-04-17] MEDS: ACCU-CHEK COMFORT CURVE STRIP VI SCH ×4 (06:53→21:59)
[2020-04-17] MEDS: InsuLIN REG 1unit/0.01ml Soln (100units/ml) SC SCH ×4 (06:53→22:10)
[2020-04-17 07:29] LABS: Basophils # (auto) 0 10 ^3/uL (0-0.2); Basophils % (auto) 0.7 % (0.0-2.0); Eosinophils # (auto) 0.1 10 ^3/uL (0-0.8); Eosinophils % (auto) 2.2 % (0.0-7.0); Hematocrit 33.1 % (36.0-46.0); Hemoglobin 11.3 g/dL (12.2-16.2); Lymphocytes # (auto) 0.8 10 ^3/uL (0.4-5.4); Lymphocytes % (auto) 14.4 % (10.0-50.0); Mean Corpuscular Hemoglobin 29.8 pg (28.0-32.0); Mean Corpuscular Hgb Conc. 34.1 g/dL (32.0-36.0); Mean Corpuscular Volume 87.6 fL (80.0-100.0); Monocytes # (auto) 0.3 10 ^3/uL (0-1.3); Monocytes % (auto) 4.9 % (0.0-12.0); Neutrophils # (auto) 4.5 10 ^3/uL (1.6-8.6); Neutrophils % (auto) 77.8 % (37.0-80.0); Platelet Count (auto) 120 10^3/uL (140-450); Red Blood Cells 3.78 10^6/uL (4.0-5.20); Red Cell Distribution Width 15.3 % (11.8-14.3); White Blood Cell 5.7 10^3/uL (4.4-10.8)
[2020-04-17 07:41] LABS: BUN/Creatinine Ratio 31.1; Calcium 8.7 mg/dL (8.5-10.1); Magnesium 2.6 mg/dL (1.6-2.6); Potassium 4.7 mmol/L (3.5-5.1)
[2020-04-17 08:00] VITALS: BP 144/77
[2020-04-17] MEDS: cefTRIAXone 1GM/50ML D5W 50 ML IV SCH (09:20)
[2020-04-17] MEDS: CARVEDILOL 3.125 MG TAB PO SCH ×2 (09:22→21:58)
[2020-04-17] MEDS: CHOLECALCIFEROL (VITD3) 2,000 UNIT CAP/TAB PO SCH (09:23)
[2020-04-17] MEDS: cloNIDine HCL 0.1 MG TAB PO SCH ×2 (09:24→21:59)
[2020-04-17] MEDS: ASCORBIC ACID 1,000 MG TAB PO SCH (09:25)
[2020-04-17] MEDS: ZINC SULFATE 220mg CAP or TAB PO SCH (09:25)
[2020-04-17] MEDS: amLODIPine BESYLATE 5 MG TAB PO SCH (09:25)
[2020-04-17] MEDS: FAMOTIDINE (10MG/ML) 2ML VL IV SCH (09:26)
[2020-04-17] MEDS: FUROSEMIDE 40 MG/4 ML VIAL IV SCH (09:26)
[2020-04-17] MEDS: DexAMETHasone SOD PHOS 10MG/1ML VIAL INJ IV SCH (09:27)
[2020-04-17] MEDS: ENOXAPARIN SOD 80 MG/0.8ML SYRINGE SC SCH (09:27)
[2020-04-17] MEDS: ERGOCALCIFEROL 50,000 UNIT(1.25MG) CAP PO SCH (15:00)
[2020-04-17 16:00] VITALS: BP 112/75
[2020-04-18] VITALS: BP_SYST 114; BP_SYST 136; BP_DIAS 66; BP_DIAS 77
[2020-04-18 05:00] VITALS: BP 148/75
[2020-04-18] MEDS: ACCU-CHEK COMFORT CURVE STRIP VI SCH ×4 (06:09→21:34)
[2020-04-18] MEDS: InsuLIN REG 1unit/0.01ml Soln (100units/ml) SC SCH ×4 (06:15→21:38)
[2020-04-18 06:43] LABS: Potassium 4.9 mmol/L (3.5-5.1)
[2020-04-18 06:49] LABS: BUN/Creatinine Ratio 32.6
[2020-04-18 08:00] VITALS: BP 122/65
[2020-04-18] MEDS: DexAMETHasone SOD PHOS 10MG/1ML VIAL INJ IV SCH (08:40)
[2020-04-18] MEDS: FAMOTIDINE (10MG/ML) 2ML VL IV SCH (08:41)
[2020-04-18] MEDS: FUROSEMIDE 40 MG/4 ML VIAL IV SCH (08:41)
[2020-04-18] MEDS: ZINC SULFATE 220mg CAP or TAB PO SCH (08:42)
[2020-04-18] MEDS: cloNIDine HCL 0.1 MG TAB PO SCH ×2 (08:43→10:00)
[2020-04-18] MEDS: ASCORBIC ACID 1,000 MG TAB PO SCH (08:44)
[2020-04-18] MEDS: CHOLECALCIFEROL (VITD3) 2,000 UNIT CAP/TAB PO SCH (08:44)
[2020-04-18] MEDS: amLODIPine BESYLATE 5 MG TAB PO SCH (08:44)
[2020-04-18] MEDS: ENOXAPARIN SOD 80 MG/0.8ML SYRINGE SC SCH (08:44)
[2020-04-18] MEDS: cefTRIAXone 1GM/50ML D5W 50 ML IV SCH (08:45)
[2020-04-18] MEDS: CARVEDILOL 3.125 MG TAB PO SCH ×2 (10:00→21:33)
[2020-04-18] MEDS ORDERED: LIDOCAINE 2%HCL (LOCAL ANESTH.) INJ 20ML MDV ONE (14:30)
[2020-04-18 16:00] VITALS: BP 120/55
[2020-04-19] VITALS: BP 136/77
[2020-04-19 06:46] LABS: Basophils # (auto) 0 10 ^3/uL (0-0.2); Basophils % (auto) 0.9 % (0.0-2.0); Eosinophils # (auto) 0.1 10 ^3/uL (0-0.8); Eosinophils % (auto) 1.9 % (0.0-7.0); Hematocrit 33.9 % (36.0-46.0); Hemoglobin 11.6 g/dL (12.2-16.2); Lymphocytes # (auto) 0.9 10 ^3/uL (0.4-5.4); Lymphocytes % (auto) 16.8 % (10.0-50.0); Mean Corpuscular Hemoglobin 29.7 pg (28.0-32.0); Mean Corpuscular Hgb Conc. 34.2 g/dL (32.0-36.0); Mean Corpuscular Volume 86.8 fL (80.0-100.0); Monocytes # (auto) 0.3 10 ^3/uL (0-1.3); Monocytes % (auto) 5.5 % (0.0-12.0); Neutrophils # (auto) 3.8 10 ^3/uL (1.6-8.6); Neutrophils % (auto) 74.9 % (37.0-80.0); Nucleated Red Blood Cells % 0.1 %; Platelet Count (auto) 117 10^3/uL (140-450); Red Blood Cells 3.91 10^6/uL (4.0-5.20); Red Cell Distribution Width 15.1 % (11.8-14.3); White Blood Cell 5.1 10^3/uL (4.4-10.8)
[2020-04-19] MEDS: InsuLIN REG 1unit/0.01ml Soln (100units/ml) SC SCH ×4 (07:00→22:00)
[2020-04-19] MEDS: ACCU-CHEK COMFORT CURVE STRIP VI SCH ×4 (07:01→22:00)
[2020-04-19 07:09] LABS: Potassium 4.4 mmol/L (3.5-5.1)
[2020-04-19 07:17] LABS: BUN/Creatinine Ratio 33.7; Calcium 8.9 mg/dL (8.5-10.1)
[2020-04-19 08:00] VITALS: BP 151/73
[2020-04-19] MEDS: FUROSEMIDE 40 MG/4 ML VIAL IV SCH (10:00)
[2020-04-19] MEDS: CARVEDILOL 3.125 MG TAB PO SCH ×2 (10:00→22:00)
[2020-04-19] MEDS: cloNIDine HCL 0.1 MG TAB PO SCH ×2 (10:43→22:00)
[2020-04-19] MEDS: FAMOTIDINE (10MG/ML) 2ML VL IV SCH (10:43)
[2020-04-19] MEDS: ZINC SULFATE 220mg CAP or TAB PO SCH (10:43)
[2020-04-19] MEDS: cefTRIAXone 1GM/50ML D5W 50 ML IV SCH (10:43)
[2020-04-19] MEDS: DexAMETHasone SOD PHOS 10MG/1ML VIAL INJ IV SCH (10:43)
[2020-04-19] MEDS: ENOXAPARIN SOD 80 MG/0.8ML SYRINGE SC SCH (10:44)
[2020-04-19] MEDS: CHOLECALCIFEROL (VITD3) 2,000 UNIT CAP/TAB PO SCH (10:44)
[2020-04-19] MEDS: amLODIPine BESYLATE 5 MG TAB PO SCH (10:44)
[2020-04-19] MEDS: ASCORBIC ACID 1,000 MG TAB PO SCH (10:44)
[2020-04-19 15:51] VITALS: BP 131/75
[2020-04-20] VITALS: BP 137/66
[2020-04-20] MEDS: InsuLIN REG 1unit/0.01ml Soln (100units/ml) SC SCH ×4 (06:15→22:00)
[2020-04-20] MEDS: ACCU-CHEK COMFORT CURVE STRIP VI SCH ×4 (06:29→22:00)
[2020-04-20 07:33] LABS: Basophils # (auto) 0.1 10 ^3/uL (0-0.2); Eosinophils # (auto) 0.1 10 ^3/uL (0-0.8); Eosinophils % (auto) 1.1 % (0.0-7.0); Hematocrit 33.9 % (36.0-46.0); Hemoglobin 11.5 g/dL (12.2-16.2); Lymphocytes # (auto) 0.9 10 ^3/uL (0.4-5.4); Lymphocytes % (auto) 15.7 % (10.0-50.0); Mean Corpuscular Hemoglobin 29.5 pg (28.0-32.0); Mean Corpuscular Hgb Conc. 33.8 g/dL (32.0-36.0); Mean Corpuscular Volume 87.4 fL (80.0-100.0); Monocytes # (auto) 0.3 10 ^3/uL (0-1.3); Monocytes % (auto) 4.7 % (0.0-12.0); Neutrophils # (auto) 4.2 10 ^3/uL (1.6-8.6); Neutrophils % (auto) 77.5 % (37.0-80.0); Nucleated Red Blood Cells % 0.2 %; Platelet Count (auto) 108 10^3/uL (140-450); Red Blood Cells 3.88 10^6/uL (4.0-5.20); Red Cell Distribution Width 15.8 % (11.8-14.3); White Blood Cell 5.4 10^3/uL (4.4-10.8)
[2020-04-20 07:55] LABS: Potassium 4.4 mmol/L (3.5-5.1)
[2020-04-20 07:57] LABS: BUN/Creatinine Ratio 36.3
[2020-04-20 08:00] VITALS: BP 155/91
[2020-04-20] MEDS: cefTRIAXone 1GM/50ML D5W 50 ML IV SCH (09:12)
[2020-04-20] MEDS: FUROSEMIDE 40 MG/4 ML VIAL IV SCH (11:29)
[2020-04-20] MEDS: ZINC SULFATE 220mg CAP or TAB PO SCH (11:29)
[2020-04-20] MEDS: DexAMETHasone SOD PHOS 10MG/1ML VIAL INJ IV SCH (11:29)
[2020-04-20] MEDS: FAMOTIDINE (10MG/ML) 2ML VL IV SCH (11:29)
[2020-04-20] MEDS: amLODIPine BESYLATE 5 MG TAB PO SCH (11:30)
[2020-04-20] MEDS: CARVEDILOL 3.125 MG TAB PO SCH ×2 (11:30→22:00)
[2020-04-20] MEDS: ASCORBIC ACID 1,000 MG TAB PO SCH (11:30)
[2020-04-20] MEDS: cloNIDine HCL 0.1 MG TAB PO SCH ×2 (11:30→22:00)
[2020-04-20] MEDS: ENOXAPARIN SOD 80 MG/0.8ML SYRINGE SC SCH (11:31)
[2020-04-20] MEDS: CHOLECALCIFEROL (VITD3) 2,000 UNIT CAP/TAB PO SCH (11:31)
[2020-04-20 16:09] VITALS: BP 115/63
[2020-04-21] VITALS: BP 127/70
[2020-04-21] MEDS: InsuLIN REG 1unit/0.01ml Soln (100units/ml) SC SCH ×4 (06:19→22:00)
[2020-04-21] MEDS: ACCU-CHEK COMFORT CURVE STRIP VI SCH ×4 (06:25→22:00)
[2020-04-21 06:36] LABS: Basophils # (auto) 0 10 ^3/uL (0-0.2); Basophils % (auto) 0.7 % (0.0-2.0); Eosinophils # (auto) 0 10 ^3/uL (0-0.8); Eosinophils % (auto) 0.8 % (0.0-7.0); Hematocrit 33.5 % (36.0-46.0); Hemoglobin 11.4 g/dL (12.2-16.2); Lymphocytes # (auto) 0.8 10 ^3/uL (0.4-5.4); Mean Corpuscular Hemoglobin 29.8 pg (28.0-32.0); Mean Corpuscular Hgb Conc. 33.9 g/dL (32.0-36.0); Mean Corpuscular Volume 87.8 fL (80.0-100.0); Monocytes # (auto) 0.3 10 ^3/uL (0-1.3); Monocytes % (auto) 6.2 % (0.0-12.0); Neutrophils # (auto) 4.3 10 ^3/uL (1.6-8.6); Neutrophils % (auto) 78.3 % (37.0-80.0); Nucleated Red Blood Cells % 0.1 %; Platelet Count (auto) 101 10^3/uL (140-450); Red Blood Cells 3.81 10^6/uL (4.0-5.20); Red Cell Distribution Width 16.1 % (11.8-14.3); White Blood Cell 5.4 10^3/uL (4.4-10.8)
[2020-04-21 06:44] LABS: Calcium 8.9 mg/dL (8.5-10.1); Potassium 4.7 mmol/L (3.5-5.1)
[2020-04-21 06:47] LABS: BUN/Creatinine Ratio 37.4
[2020-04-21 08:00] VITALS: BP 150/73
[2020-04-21] MEDS: cloNIDine HCL 0.1 MG TAB PO SCH ×2 (10:00→22:00)
[2020-04-21] MEDS: CARVEDILOL 3.125 MG TAB PO SCH ×2 (10:00→22:00)
[2020-04-21] MEDS: cefTRIAXone 1GM/50ML D5W 50 ML IV SCH (10:05)
[2020-04-21] MEDS: ENOXAPARIN SOD 80 MG/0.8ML SYRINGE SC SCH (10:06)
[2020-04-21] MEDS: FUROSEMIDE 40 MG/4 ML VIAL IV SCH (10:06)
[2020-04-21] MEDS: DexAMETHasone SOD PHOS 10MG/1ML VIAL INJ IV SCH (10:06)
[2020-04-21] MEDS: CHOLECALCIFEROL (VITD3) 2,000 UNIT CAP/TAB PO SCH (10:06)
[2020-04-21] MEDS: ZINC SULFATE 220mg CAP or TAB PO SCH (10:06)
[2020-04-21] MEDS: FAMOTIDINE (10MG/ML) 2ML VL IV SCH (10:06)
[2020-04-21] MEDS: ASCORBIC ACID 1,000 MG TAB PO SCH (10:07)
[2020-04-21] MEDS: amLODIPine BESYLATE 5 MG TAB PO SCH (10:07)
[2020-04-21 15:39] VITALS: BP 145/75
[2020-04-22] VITALS (7 sets, daily range): BP systolic 133–154; BP diastolic 68–85
[2020-04-22] MEDS: ACCU-CHEK COMFORT CURVE STRIP VI SCH ×4 (06:27→21:56)
[2020-04-22] MEDS: InsuLIN REG 1unit/0.01ml Soln (100units/ml) SC SCH ×4 (06:27→22:07)
[2020-04-22 07:26] LABS: Potassium 4.2 mmol/L (3.5-5.1)
[2020-04-22 07:31] LABS: BUN/Creatinine Ratio 39.9; Calcium 8.8 mg/dL (8.5-10.1)
[2020-04-22] MEDS: cefTRIAXone 1GM/50ML D5W 50 ML IV SCH (09:37)
[2020-04-22] MEDS: ZINC SULFATE 220mg CAP or TAB PO SCH (09:38)
[2020-04-22] MEDS: FUROSEMIDE 40 MG/4 ML VIAL IV SCH (09:38)
[2020-04-22] MEDS: ENOXAPARIN SOD 80 MG/0.8ML SYRINGE SC SCH (09:38)
[2020-04-22] MEDS: FAMOTIDINE (10MG/ML) 2ML VL IV SCH (09:38)
[2020-04-22] MEDS: DexAMETHasone 4 MG TAB PO SCH (09:39)
[2020-04-22] MEDS: amLODIPine BESYLATE 5 MG TAB PO SCH (09:39)
[2020-04-22] MEDS: ASCORBIC ACID 1,000 MG TAB PO SCH (09:39)
[2020-04-22] MEDS: CHOLECALCIFEROL (VITD3) 2,000 UNIT CAP/TAB PO SCH (09:40)
[2020-04-22] MEDS: CARVEDILOL 3.125 MG TAB PO SCH (09:41)
[2020-04-22] MEDS: cloNIDine HCL 0.1 MG TAB PO SCH (09:41)
[2020-04-22] MEDS ORDERED: ALBUAER3 IN (14:21)
[2020-04-22] MEDS ORDERED: ZINC220T6 PO (14:21)
[2020-04-22] MEDS ORDERED: DOXY-286 PO (14:21)
[2020-04-22] MEDS ORDERED: ASCO10003 PO (14:21)
[2020-04-22] MEDS ORDERED: DEX4T PO ×2 (14:21→15:35)
[2020-04-22] MEDS ORDERED: CAR3125T PO (14:21)
[2020-04-22] MEDS: hydrALAZINE HCL 25 MG TAB PO PRN (22:15)
[2020-04-23] VITALS (8 sets, daily range): BP systolic 142–157; BP diastolic 70–93
[2020-04-23] MEDS: ACCU-CHEK COMFORT CURVE STRIP VI SCH ×3 (05:49→17:11)
[2020-04-23] MEDS: InsuLIN REG 1unit/0.01ml Soln (100units/ml) SC SCH ×3 (05:49→17:11)
[2020-04-23] MEDS ORDERED: ENOXAPARIN SOD 40 MG/0.4 ML SYRINGE SC SCH (10:00)
[2020-04-23] MEDS: FAMOTIDINE (10MG/ML) 2ML VL IV SCH (10:08)
[2020-04-23] MEDS: FUROSEMIDE 40 MG/4 ML VIAL IV SCH (10:08)
[2020-04-23] MEDS: DexAMETHasone 4 MG TAB PO SCH (10:09)
[2020-04-23] MEDS: amLODIPine BESYLATE 5 MG TAB PO SCH (10:09)
[2020-04-23] MEDS: CHOLECALCIFEROL (VITD3) 2,000 UNIT CAP/TAB PO SCH (10:09)
[2020-04-23] MEDS: ZINC SULFATE 220mg CAP or TAB PO SCH (10:09)
[2020-04-23] MEDS: ASCORBIC ACID 1,000 MG TAB PO SCH (10:09)
[2020-04-23] MEDS: hydrALAZINE HCL 25 MG TAB PO PRN (13:47)
[2020-04-23] MEDS ORDERED: LABETALOL HCL 5 MG/ML 4ML SYRINGE IV ONE (17:15)
== END 2020-04-23 18:31 | disposition home health service (06) | DRG 871 ==
LOC: EDBD 07:15 → ER 07:15 → EDBD 07:16 → OVERFLOW 07:16 → TELE-WESTW 04-09 15:01
PROVIDERS: ADMIT Nurse Practitioner Acute Care; ATTEND Internal Medicine
PROC: XW13325 Transfusion of Convalescent Plasma (Nonautologous) into Peripheral Vein, Percutaneous Approach, New Technology Group 5 (ICD-10-PCS; principal; 2020-04-02)
PROC: XW033H5 Introduction of Tocilizumab into Peripheral Vein, Percutaneous Approach, New Technology Group 5 (ICD-10-PCS; 2020-04-02)
DX: A41.89 Other specified sepsis (principal); U07.1 COVID-19; J96.01 Acute respiratory failure with hypoxia; J12.82 Pneumonia due to coronavirus disease 2019; N17.0 Acute kidney failure with tubular necrosis; I21.A1 Myocardial infarction type 2; G93.41 Metabolic encephalopathy; I50.21 Acute systolic (congestive) heart failure; D68.59 Other primary thrombophilia; D89.839 Cytokine release syndrome, grade unspecified; E78.5 Hyperlipidemia, unspecified; E55.9 Vitamin D deficiency, unspecified; E03.9 Hypothyroidism, unspecified; E11.22 Type 2 diabetes mellitus with diabetic chronic kidney disease; N18.9 Chronic kidney disease, unspecified; Z79.84 Long term (current) use of oral hypoglycemic drugs; I11.0 Hypertensive heart disease with heart failure; Z86.19 Personal history of other infectious and parasitic diseases
CPT/HCPCS: 36415; 36600; 71045; 71250; 80048; 80053; 80061; 81001; 82010; 82306; 82728; 82805; 82962; 83036; 83605; 83615; 83735; 83880; 84443; 84484; 85025; 85379; 85610; 86141; 86704; 86706; 86708; 86803; 86850; 86900; 86901; 87040; 87081; 87340; 87426; 87804; 93005; 93306; 93970; 94640; 96365; 96366; 96375; 97110; 97116; 97163; 97530; 99291; G0378; J0696; J1100; J1815; J3490

== ENCOUNTER 2020-05-10 11:49 | Emergency (ER) | payer OTHER, MEDICAID ==
[~2020-05-10] VITALS: Ht 147.3 cm; Wt 72.6 kg
[~2020-05-10 11:49] MED LIST: ACET-1304 PO; ALBUAER3 IN; ALOG25TA PO; AMLO-496 PO; ASCO10003 PO; ASPI-498 PO; AZEL0.054 EACHEYE; CAR3125T PO; CHOL500023 PO; DEX4T PO; DOXY-286 PO; ENTE1TAB12 PO; FENO145T27 PO; FURO40TA4 PO; ISO60SRT PO; KET2TP TOP; LEVO125T7 PO; OMEP-263 PO; PIOG1TAB51 PO; SIMV-8 PO; ZINC220T6 PO
[2020-05-10 13:14] LABS: Basophils # (auto) 0.1 10 ^3/uL (0-0.2); Basophils % (auto) 1.1 % (0.0-2.0); Eosinophils # (auto) 0.1 10 ^3/uL (0-0.8); Eosinophils % (auto) 1.5 % (0.0-7.0); Hematocrit 31.2 % (36.0-46.0); Hemoglobin 10.5 g/dL (12.2-16.2); Lymphocytes # (auto) 1.1 10 ^3/uL (0.4-5.4); Lymphocytes % (auto) 10.9 % (10.0-50.0); Mean Corpuscular Hemoglobin 30.7 pg (28.0-32.0); Mean Corpuscular Hgb Conc. 33.7 g/dL (32.0-36.0); Mean Corpuscular Volume 90.9 fL (80.0-100.0); Monocytes # (auto) 0.5 10 ^3/uL (0-1.3); Monocytes % (auto) 4.8 % (0.0-12.0); Neutrophils # (auto) 7.9 10 ^3/uL (1.6-8.6); Neutrophils % (auto) 81.7 % (37.0-80.0); Platelet Count (auto) 143 10^3/uL (140-450); Red Blood Cells 3.44 10^6/uL (4.0-5.20); Red Cell Distribution Width 18.9 % (11.8-14.3); White Blood Cell 9.7 10^3/uL (4.4-10.8)
[2020-05-10] MEDS ORDERED: SODIUM CHLORIDE 0.9% 1,000 ML IV ONE (13:30)
[2020-05-10 13:46] LABS: Albumin 2.5 g/dL (3.4-5.0); Calcium 7.6 mg/dL (8.5-10.1); Potassium 4.3 mmol/L (3.5-5.1)
[2020-05-10 13:51] LABS: Bilirubin, Total 0.6 mg/dL (0.2-1.0); Total Protein 6.3 g/dL (6.4-8.2)
[2020-05-10 13:55] LABS: INR 1.04 (0.9-1.15); Partial Thromboplastin Time 25.4 sec (23.0-31.2)
[2020-05-10 14:26] LABS: Magnesium 2.6 mg/dL (1.6-2.6)
[2020-05-10] MEDS ORDERED: cefTRIAXone 1GM/50ML D5W 50 ML IV ONE (15:30)
[2020-05-10] MEDS ORDERED: AZITHROMYCIN 500MG/ 250ML 250 ML IV ONE (15:30)
[2020-05-10 15:56] LABS: Urine Bacteria FEW /hpf (None Seen); Urine Blood Negative /uL (Negative); Urine Hyaline Cast MOD /lpf (0 - 2); Urine Mucus FEW (None Seen); Urine WBC 11 /hpf (0 - 5)
[2020-05-10] MEDS ORDERED: NITROGLYCERIN 0.4 MG SL TAB SL PRN (16:00)
[2020-05-10] MEDS ORDERED: MORPHINE SULF INJ 2 MG/ML SYRINGE 1ML IV PRN (16:00)
[2020-05-10 18:37] VITALS: BP 137/77
== END 2020-05-10 19:09 | disposition home or self-care (01) ==
LOC: ER 11:49 → EDBD 11:49 → UNDOADMIN 11:50 → TELE 11:50 → ER 18:51
DX: I13.0 Hypertensive heart and chronic kidney disease with heart failure and stage 1 through stage 4 chronic kidney disease, or unspecified chronic kidney disease (principal); E11.22 Type 2 diabetes mellitus with diabetic chronic kidney disease; N18.9 Chronic kidney disease, unspecified; I50.40 Unspecified combined systolic (congestive) and diastolic (congestive) heart failure; D63.1 Anemia in chronic kidney disease; E03.9 Hypothyroidism, unspecified; J44.9 Chronic obstructive pulmonary disease, unspecified; Z20.822 Contact with and (suspected) exposure to COVID-19
CPT/HCPCS: 36415; 71045; 80053; 81001; 83735; 83880; 84443; 84484; 85025; 85379; 85610; 85730; 87426; 93005; 96361; 96365; 96366; 96367; 99285; C9803; J0456; J0696; J7030; U0003